=== PATIENT | female | born 1970 | race Two or more races ===

== ENCOUNTER 2024-04-30 08:54 | Outpatient (CLI) | payer BC | END 2024-04-30 09:00 | disposition home or self-care (01) | LOC: RAD 08:54 | PROVIDERS: ATTEND Physical Medicine & Rehabilitation | DX: M54.2 Cervicalgia (principal) ==

== ENCOUNTER 2024-06-09 08:38 | Outpatient (CLI) | payer BC | END 2024-06-09 08:40 | disposition home or self-care (01) | LOC: SONOGRAMA 08:38 | DX: M75.41 Impingement syndrome of right shoulder (principal) ==